=== PATIENT | female | born 1975 | race Caucasian/White ===

== ENCOUNTER 2017-11-08 00:11 | Outpatient (CLI) | payer BC, SELFPAY ==
--- NOTE | 2017-11-08 15:45 | DI.MAMMO_ITS ---
SYMPTOMS/DIAGNOSIS: SCREENING, Z12.31 MAMMOGRAMS: Mammograms were interpreted according to the usual protocol including computer analysis with CAD system, tomosynthesis and C view imaging. The breast tissue is of moderate radiodensity. No masses identified. There are no suspicious calcifications and there has been no appreciable interval change when compared with previous images. SUMMARY: No evidence of malignancy, category 1. Yearly screening mammography is recommended. Breast density category B. MQSA ASSESSMENT OF FINDINGS: Negative. Category 1. Patient will receive a letter notifying them of these results. BI-RADS category B. There are scattered areas of fibroglandular density.
== END 2017-11-08 00:31 ==
PROVIDERS: PCP Family Medicine; Visit Provider Nurse Practitioner Family
DX: Z12.31 Encounter for screening mammogram for malignant neoplasm of breast (principal)
CPT/HCPCS: 77063; 77067

== ENCOUNTER 2018-03-04 19:29 | Emergency (ER) | payer OTHER, SELFPAY ==
[2018-03-04 19:37] VITALS: BP 120/83; PULSE 67; RESP 16; TEMP 36.5; O2SAT 98
--- NOTE | 2018-03-04 19:54 | DI.RAD_ITS ---
SYMPTOMS/DIAGNOSIS: PAIN, S/P TRAUMA LEFT FOOT: No fracture or dislocation is seen. IMPRESSION: Negative left foot.
--- NOTE | 2018-03-04 19:54 | ED.GENADUL_ITS ---
Discharge Plan Disposition Patient Disposition: HOME Condition: Stable Discharge Details Chief Complaint: Orthopedic Clinical Impression: Contusion of foot, left Primary Care Provider: Smita Ortez V ED Provider: Garcia Alaniz Home Meds and New Rx's Prescriptions: No Action norgestimate-ethinyl estradiol [Sprintec (28)] 1 EACH tablet 1 tab-cap PO DAILY Qty: 3 RF: 3 Discharge Instructions Instructions: Contusion in Adults (ED) Additional Instructions: you can take 1000mg tylenol and 600mg ibuprofen every 6 hours for pain as needed if you still have pain next week see your primary care provider Medical Decision Making Pt states while at school a table fell on her left foot causing pain. Has pain proximal to the left toe without significant obvious deformity and has full rom of the ankle, 2+dp/pt pulses. Suspect contusion but will xray to eval for fx xray negative on my read, if vrad agrees will d/c as this is likely bone contusion, advised f/u with pcp in 1-2 weeks if still in pain Differential Diagnosis contusion, sprain, strain, fx Imaging Data Radiologic Study: Attestation: I personally reviewed and interpreted this imaging study as follows: Imaging: X-Ray My impression: no acute findings HPI General Mode of arrival: ambulatory . Date/Time Provider Initiated Documentation: 03/04/18 19:50 . Limitations to Documentation: no limitations . Information obtained by: patient . History of Present Illness 42 year old F presents to the emergency department with the chief complaint of left foot pain , described as moderate, with intensity rated at 5. Quality is described as aching, and is localized to the right and lower extremity. Patient reports no radiation. Patient started experiencing this hour(s) (6) and it has been constant. Rest improves symptom(s), Movement worsens symptoms . Patient notes no other symptoms.. Patient did receive the following treatments prior to arrival, none Related Data Home Medications Medication Instructions Recorded Confirmed norgestimate-ethinyl estradiol 1 tab-cap PO DAILY #3 pack 18 03/04/18 [Sprintec] Previous Rx's Medication Instructions Recorded norgestimate-ethinyl estradiol 1 tab-cap PO DAILY #3 pack 08/26/17 [Sprintec] Allergies Allergy/AdvReac Type Severity Reaction Status Date / Time No Known Drug Allergies Allergy Unverified 03/04/18 19:41 General Stated Complaint: Orthopedic MICHAEL: 4 Review of Systems Review of Systems All systems reviewed & are unremarkable except as noted in HPI and below Constitutional Denies chills and Denies fever(s) Cardiovascular Denies chest pain and Denies dyspnea Respiratory Denies dyspnea Gastrointestinal Denies abdominal pain, Denies nausea and Denies vomiting PFSH Surgical History Biopsy of breast (~01/2014) Family History Mother Essential hypertension Father Sleep apnea Essential hypertension Maternal Aunt Breast cancer Social History Smoking/Tobacco Use Status: Never Exam Const General: no acute distress Orientation: alert HENMT Head: normal to inspection Ears: external ears normal General nose exam: external nose normal Mouth: moist mucous membranes Eyes General: appearance normal, both eyes and all related structures Neck Neck: normal visual inspection Resp Effort & Inspection: normal respiratory effort and able to speak in complete sentences Cardio Rate: regular rate Skin General skin exam: no rashes or lesions noted Neuro General: alert and oriented x3 Extrem General: normal to inspection Psych Mental Status: mental status grossly normal Course Vital Signs Temperature 36.5 C 03/04/18 19:37 Pulse 67 03/04/18 19:37 Respiratory Rate 16 03/04/18 19:37 Blood Pressure 120/83 03/04/18 19:37 Pulse Oximetry 98 03/04/18 19:37 Temperature 36.5 C 03/04/18 19:37 Temperature Source Skin 03/04/18 19:37 Pulse 67 03/04/18 19:37 Respiratory Rate 16 03/04/18 19:37 Respiratory Effort 03/04/18 19:40 Blood Pressure 120/83 03/04/18 19:37 Blood Pressure Position Sitting 03/04/18 19:37 Pulse Oximetry 98 03/04/18 19:37 Oxygen Delivery Method Room Air 03/04/18 19:37 Oxygen Flow Rate 0 03/04/18 19:37 Pain Level 6 03/04/18 19:43
--- NOTE | 2018-03-04 20:23 | DI.VRAD_ITS ---
EXAM: XR Left Foot Complete, 3 or more Views EXAM DATE/TIME: 03/04/2018 7:55 PM CLINICAL HISTORY: 42 years old, female; Injury or trauma; Injury history: Dropped a table onto foot; Initial encounter; Blunt trauma; Left TECHNIQUE: XR Left foot 3 or more views. COMPARISON: No relevant prior studies available. FINDINGS: Bones/joints: Normal. There is no evidence of acute fracture.There is no evidence of malalignment or dislocation. Soft tissues: Normal. IMPRESSION: No acute findings. Dictated and Authenticated by: Long Castorena MD. Ordering:RADU Zelaya MD
[2018-03-04] MEDS: Ibuprofen 600 MG TAB PO (20:57)
--- NOTE | 2018-03-04 20:58 | NUR.NOTE ---
patient medicated per MD order Nursing Note:
== END 2018-03-04 21:03 | disposition home or self-care (01) ==
PROVIDERS: Emergency Provider Emergency Medicine; PCP Family Medicine
DX: S90.32XA Contusion of left foot, initial encounter (principal); W20.8XXA Other cause of strike by thrown, projected or falling object, initial encounter
CPT/HCPCS: 99283; 73630

== ENCOUNTER 2018-08-08 12:06 | Outpatient (REF) | payer BC, SELFPAY ==
--- NOTE | 2018-08-08 11:15 | PAPFT_PTH ---
PATIENT: Vanesa Gleason LOC: [facility] U#:[id number] AGE/SX: 42/F ROOM: RE08/08/[address]: HARRY Amaro : 1975 BED: DIS: 08/08/2018 SPEC #: [id number] RECD: 08/08/18 13:09 STATUS: VIKASH REPhillip #: [id number] AZEB: 08/08/18 11:[address]: Jen Leonardo DEPT: [facility] Cytology RECD BY: Thi Carey ENTERED: 08/08/18 13:09 SP TYPE: PAPFT OTHR DR: Smita Ortez V Tissues: 1 - CX/ENDOCX FOR PAP SMEARS Procedures: PAP THIN PREP/UVM Screening HPV DNA PROBE Comments: [id number]
== END 2018-08-08 12:26 ==
LOC: LBN 12:06
PROVIDERS: PCP Family Medicine; Visit Provider Nurse Practitioner Family
DX: Z12.4 Encounter for screening for malignant neoplasm of cervix (principal); Z11.51 Encounter for screening for human papillomavirus (HPV)
CPT/HCPCS: 88142; 87624

== ENCOUNTER 2018-11-14 00:13 | Outpatient (CLI) | payer BC, SELFPAY ==
--- NOTE | 2018-11-14 15:30 | DI.MAMMO_ITS ---
EXAM: MG MAMMO SCREENING CLINICAL HISTORY: Screening, Z12.31. TECHNIQUE: Mammograms were interpreted according to the usual protocol including computer analysis w [employer] CAD system, tomosynthesis and C-view imaging. COMPARISON: Comparison with prior images. FINDINGS: The breast tissue is of moderate radiodensity. There is no evidence of a mass. There are no suspiciou s calcifications and there has been no appreciable interval change when compared with prior images. IMPRESSION: No evidence of malignancy, Category 1, annual screening mammography is recommended. Breast density Ca tegory B. BI-RADS Cat 1 - Negative Breast Density - Category B - Scattered areas of fibroglandular density
== END 2018-11-14 00:33 ==
PROVIDERS: PCP Family Medicine; Visit Provider Nurse Practitioner Family
DX: Z12.31 Encounter for screening mammogram for malignant neoplasm of breast (principal)
CPT/HCPCS: 77063; 77067

== ENCOUNTER 2020-09-04 02:28 | Outpatient (CLI) | payer BC, SELFPAY ==
--- NOTE | 2020-09-04 08:15 | DI.MAMMO_ITS ---
Exam(s) MAMMO SCREENING EXAM: MAMMO SCREENING CLINICAL HISTORY: screening,Z12.39. TECHNIQUE: Bilateral full field digital CC and MLO mammographic images were obtained with 3D tomosyn thesis and utilizing computer aided detection (CAD). COMPARISON: Prior mammograms dating back to 2013, the most recent being October 2018. FINDINGS: There are no new spiculated masses nor malignant appearing microcalcification groups. There is no significant architectural distortion nor skin thickening-retraction. IMPRESSION: No radiographic evidence of malignancy. BI-RADS Category 1 - Negative Breast Density - Category B - Scattered areas of fibroglandular density Breast density Category C or D implies that the patient has dense breast tissue. Dense breast tissue can make it harder to find cancer on a mammogram. Dense breast tissue is also associated with an incr eased risk of breast cancer. This information about the result of the mammogram report was provided to the patient to raise their awareness. Use this report when you speak with the patient about their risks for breast cancer, which includes their family history. At that time, you may recommend additional screening tests (Ultrasoun d or MRI) as these tests may add significant information. A negative radiographic report should not delay biopsy if a dominant or clinically suspicious mass is present. Up to ten percent of cancers are not identified on mammography. A negative report may reinforce clinical impression. Adenosis and dense breasts may obscure an underlying neoplasm. False positive reports average 6 to 10%. Patient will receive a letter notifying them of these results.
== END 2020-09-04 02:48 ==
PROVIDERS: PCP Family Medicine; Visit Provider Nurse Practitioner Family
DX: Z12.31 Encounter for screening mammogram for malignant neoplasm of breast (principal); R92.8 Other abnormal and inconclusive findings on diagnostic imaging of breast
CPT/HCPCS: 77063; 77067

== ENCOUNTER 2021-12-24 17:50 | Outpatient (REF) | payer BC, SELFPAY ==
[2021-12-24 20:48] LABS: ALT 16 U/L (14-59); AST 17 U/L (15-37); Albumin 3.8 g/dL (3.4-5.0); Alkaline Phosphatase 68 U/L (46-116); Anion Gap 9.8 mmol/L (3-11); BUN 14 mg/dL (7-18); Bilirubin, Total 0.4 mg/dL (0.2-1.0); CO2 25.2 mmol/L (21.0-32.0); CREATININE 0.8 mg/dL (0.55-1.02); Calcium 9.1 mg/dL (8.5-10.1); Calculated LDL 120 mg/dL (<100); Chloride 105 mmol/L (98-107); Cholesterol 212 mg/dL (<200); Estimated GFR 90.83 (mL/min/1.73m2); Glucose 92 mg/dL (74-106); HDL Cholesterol 70 mg/dL (40-60); Potassium 4.2 mmol/L (3.5-5.1); Sodium 140 mmol/L (136-145); TSH (W/Ref FT4) 1.23 uIU/mL (0.36-3.74); Total Protein 7.5 g/dL (6.4-8.2); Triglyceride 114 mg/dL (<150)
[2021-12-24 22:08] LABS: Hemoglobin A1C 5.5 % (<5.7)
== END 2021-12-24 17:51 | disposition home or self-care (01) ==
LOC: NCHCN 17:50
PROVIDERS: PCP Family Medicine; Visit Provider Physician Assistant Medical
DX: Z00.8 Encounter for other general examination (principal)
CPT/HCPCS: 80053; 80061; 83036; 84443

== ENCOUNTER 2022-01-14 01:47 | Outpatient (CLI) | payer BC, SELFPAY ==
--- NOTE | 2022-01-14 | DI.MAMMO_ITS ---
Exam(s) MAMMO SCREENING EXAM: MAMMO SCREENING CLINICAL HISTORY: SCREENING MAMMO FOR BREAST CANCER Z12.31 TECHNIQUE: Bilateral full field digital CC and MLO mammographic images were obtained with 3D tomosyn thesis and utilizing computer aided detection (CAD). COMPARISON: Available for comparison. FINDINGS: Masses/Architectural Distortion: None seen. Microcalcifications: No suspicious pleomorphic-type are seen. Skin Thickening/Nipple Retraction: None. IMPRESSION: 1. No significant interval change with no specific features of malignancy noted. 2. Unless there is more urgent need, screening mammography is recommended, as per [employer] guidelines. BI-RADS Category 1 - Negative Breast Density - Category B - Scattered areas of fibroglandular density Breast density category C or D implies that the patient has dense breast tissue. Dense breast tissue is very common and is not abnormal but dense breast tissue can make it harder to find cancer on a ma mmogram. Also, dense breast tissue may increase their breast cancer risk. This information about the result of the mammogram report was provided to the patient to raise their awareness. Use this report when you speak with the patient about their risks for breast cancer, which includes their family hist ory. At that time, you may recommend for more screening tests (Ultrasound or MRI) as they might be us eful based on their risk. A negative radiographic report should not delay biopsy if a dominant or clinically suspicious mass is present. Up to ten percent of cancers are not identified on mammography. A negative report may reinforce clinical impression. Adenosis and dense breasts may obscure an underlying neoplasm. False positive reports average 6 to 10%. Patient will receive a letter notifying them of these results.
== END 2022-01-14 02:07 ==
LOC: DI 01:48
PROVIDERS: PCP Family Medicine; Visit Provider Physician Assistant Medical
DX: Z12.31 Encounter for screening mammogram for malignant neoplasm of breast (principal)
CPT/HCPCS: 77063; 77067

== ENCOUNTER 2022-11-16 06:13 | Day surgery (SDC) | payer BC, SELFPAY ==
[2022-11-16 06:24] VITALS: BP 139/90; PULSE 69; RESP 17; TEMP 36.6; O2SAT 98
[2022-11-16] MEDS: Lactated Ringers 1,000 ML 80 ML IV (06:52)
--- NOTE | 2022-11-16 07:02 | W.ANESPRE ---
General Info Date of Service Date Performed: 11/16/22 Height: 5 ft 4 in Weight: 103.9 kg Body Mass Index (BMI): 39.3 Surgical Procedure: Operation Date: 11/16/22 07:35 Proposed Procedure Side Surgeon p Colonoscopy Mello Georges MD Meds Allergies and Home Medications Allergies Allergy/AdvReac Type Severity Reaction Status Date / Time No Known Drug Allergies Allergy Verified 11/16/22 06:33 Home Medication Medication Instructions Recorded bisacodyl 5 mg tablet,delayed 5 mg PO ONCE Colonoscopy Bowel 10/20/22 release (Dulcolax (bisacodyl)) Prep #4 tabs escitalopram oxalate 5 mg tablet 10 mg PO DAILY 10/20/22 (Lexapro) polyethylene glycol 3350 17 238 g PO ONCE Colonoscopy Bowel 10/20/22 gram/dose oral powder Prep #238 grams Current Visit Medications: Current Medications Generic Name Dose Route Start Last Admin Trade Name Freq PRN Reason Stop Dose Admin Sodium Chloride 500 mls @ 0 mls/hr 11/16/22 06:50 Saline 500ml Bag IV 12/16/22 06:49 PRN PRN As Directed Ringer's Solution 1,000 mls @ 80 mls/hr 11/16/22 06:51 11/16/22 06:52 IV 12/16/22 06:50 80 mls/hr INFUSION DONNA Administration IV Miscellaneous Supplies 1 each 11/16/22 06:50 Iv Access IV 12/16/22 06:49 DIRECTED DONNA Sodium Chloride 0 ml 11/16/22 06:50 Normal Saline Flush 10 Ml Syr IVP 12/16/22 06:49 PRN PRN PFSH Active Problems Active Problems: Problem Status Onset Code PMS (premenstrual syndrome) N94.3 Screening for colon cancer Z12.11 GERD (gastroesophageal reflux disease) K21.9 Substernal chest pain R07.2 Anxiety and depression F41.9, F32.A Dizziness R42 Headache R51.9 Surgical History Surgical History Biopsy of breast (~01/2014) R - Benign - Dr Barnett H/O wisdom tooth extraction Tobacco Smoking/Tobacco Use Status: Never Alcohol Alcohol Intake: current Alcohol intake frequency: 0-2 drinks per day Alcohol type: beer Substance Use Substance use: Never Substance use type: does not use Prental History History 1 Para 1 Hx # Term Pregnancies Multiple births Hx # Pregnancies Ectopic pregnancies AB induced Hx Number of Living Children AB spontaneous Vital Signs and Lab Results Vital Signs Most Recent Vital Signs in EMR: Most Recent Vital Signs Temp Pulse Resp BP Pulse Ox 36.6 C 69 17 139/90 98 11/16/22 06:24 11/16/22 06:24 11/16/22 06:24 11/16/22 06:24 11/16/22 06:24 Point of Care Results Point of Care Results: POC- Test(urine) Negative 11/16/22 06:24 Lab Results Blood Type / Crossmatch: No Data to Display Complete Blood Count: No Data to Display Complete Metabolic Panel: No Data to Display Liver Function Panel: No Data to Display Coagulation Panel: No Data to Display Cardiac Panel: No Data to Display Arterial Blood Gas: No Data to Display Venous Blood Gas: No Data to Display Pancreas Panel: No Data to Display Thyroid Panel: No Data to Display Infectious Disease: No Data to Display Blood Cultures: No Data to Display Toxicology Panel: No Data to Display Panel: No Data to Display Imaging and Studies Imaging and Studies Study information below may be from another EMR and interpreted by another provider. Please see original notes in EMR for more complete details. Stress Test Summary: Stress results: The target heart rate was achieved. The heart rate response to stress is normal. There is a normal resting blood pressure with an appropriate response to stress. The rate-pressure product for the peak heart rate and blood pressure was 77959xd Hg/min. The patient experienced no chest pain during stress. Exercise capacity is above normal for age. Stress ECG: TREADMILL STRESS TEST ENDED IN 11 MINUTES & 28 SECONDS BECAUSE OF PATIENT FATIGUE. NORMAL BP RESPONSE. MAX HR 174. % OF TARGET HR = 97. ABOVE AVERAGE FUNCTIONAL CAPACITY. METS ACHIEVED = 13.48. NO ECTOPY. The stress ECG is negative. Tolbert treadmill score: 12. This score predicts a low risk of cardiac events. 03/06/15 Anesthesia Assessment and Plan Anesthesia History Personal History: No History of Anesthesia Complications Family History: No Family History of Anesthesia Complications Exercise Tolerance Exercise Tolerance: Metabolic Equivalents>4 Pertinent Negatives Pertinent Negatives: No Symptoms of GERD, No Major Cardiovascular Symptoms or Complaints, No Major Pulmonary Symptoms or Complaints and No History of CVA/TIA Cardiac & Pulmonary Exam Cardiac Exam: Normal S1/S2 Heart Sounds Pulmonary Exam: Clear Bilateral Breath Sounds Implantable Cardiac Device Does patient have a Pacemaker or an ICD?: No Airway Exam Known Difficult Airway: No Mallampati Class: 3 Mouth Opening: Normal (> 3cm) Thyromental Distance: Less than 3 cm Neck Range of Motion: Full ROM Neck Circumference: Thick Teeth Condition: Normal Dentition ASA Classification ASA Score: ASA 3 Emergency Case?: No NPO Status NPO Status: NPO Clears >2 hours, Solids >8 hours Status Status: Negative HCG Anesthesia Plan Resuscitation Status: Full Code Anesthesia Technique: General Anesthesia Airway Planned: Natural Airway Monitors Used: Standard Monitors
[2022-11-16 07:05] VITALS: BMI 39.3
[2022-11-16 08:07] VITALS: BP 102/66; PULSE 56; RESP 18; TEMP 36; O2SAT 96
--- NOTE | 2022-11-16 08:10 | W.COLOREPORT ---
Date of service: 11/16/22 Time of Service: 08:10 Colonoscopy Report Procedure Description: Procedures performed: 1. Colonoscopy Preoperative diagnosis: Screening colonoscopy Postoperative diagnosis: Diverticulosis, grade 1 internal hemorrhoids Surgeon: Pablo Georges Anesthesia: Sera Indication for procedure: 47-year-old woman without any symptoms who has never had a colonoscopy and no family history of polyps or cancer is due for screening. Findings: No polyps. Mild sigmoid diverticulosis, grade 1 internal hemorrhoids Surveillance/follow-up recommendations: 10 years Complications: None Blood loss: Minimal Prep: Excellent Specimens:? None Procedure in detail: Written consent was obtained from the patient who was in agreement with the risks, benefits and indications of the procedure.? We went to the endoscopy suite and laid the patient in left lateral decubitus position.? Anesthesia was administered which was tolerated well.? A timeout was performed and when we are all in agreement we began the procedure. Digital rectal exam and visual examination was performed and within normal limits.? A well?lubricated colonoscope was advanced without difficulty all the way to the cecum identified by the ileocecal valve, and triangular folds and appendiceal orifice.? It was then slowly withdrawn.?? Retroflexion was performed in the rectum.? The findings/interventions are noted above. The scope was then removed and the patient tolerated the procedure well and was then taken back to the PACU in hemodynamically stable condition.
--- NOTE | 2022-11-16 08:12 | W.PM.DSUDISC ---
Date of service: 11/16/22 Time of Service: 08:12 Discharge Plan Disposition Patient Disposition: Home Condition: Good Discharge Details Attending Provider: Mello Georges Primary Care Provider: Smita Ortez V Home Meds and New Rx's Prescriptions: No Action bisacodyl [Dulcolax (bisacodyl)] 5 mg tablet,delayed release (DR/EC) 5 mg PO ONCE Qty: 4 0RF Rx Instructions: Colonoscopy Bowel Prep- Per Instructions polyethylene glycol 3350 17 gram/dose powder 238 g PO ONCE Qty: 238 0RF Rx Instructions: Colonoscopy Bowel Prep- Per Instructions escitalopram oxalate [Lexapro] 5 mg tablet 10 mg PO DAILY Discharge Instructions Additional Instructions: FINDINGS: No polyps, no inflammation, nor any findings of concern. Mild diverticular changes were found in your colon. This is extremely common, benign and there is nothing you need to do about it as long as you are not having any symptoms. Mild hemorrhoid disease was also found. This is also extremely common, benign and nothing needs to be done about it Stand Alone Forms: Colonoscopy Post Instructions Activity:: Activity as Tolerated Diet:: As Tolerated Discharge Orders Discharge Orders: Discharge Order (Routine); Ordered 11/16/22 Ordered By: Mello Georges DS: Diagnosis Discharge Diagnosis (1) Screening for colon cancer: Status: Acute Asessment and Plan: No polyps. Repeat in 10 years.
--- NOTE | 2022-11-16 08:29 | W.ANESPOSTOP ---
Postoperative Evaluation Date, Time and Location Date Performed: 11/16/22 Time Performed: 08:12 Patient Location: Day Surgery Unit Vital Signs Most Recent Imported Vital Signs: Most Recent Vital Signs Temp Pulse Resp BP Pulse Ox 36 C L 56 L 18 102/66 96 11/16/22 08:07 11/16/22 08:07 11/16/22 08:07 11/16/22 08:07 11/16/22 08:07 Pain Score Most Recent Pain Score: Most Recent Pain Score Pain Level 0 11/16/22 08:07 Assessment Mental Status: Awake (Alert & Oriented to Patient Baseline) Airway and Respiratory Function: Patent airway with normal (patient baseline) respiratory exam Cardiovascular Function: Hemodynamically Stable Hydration Status: Adequately Hydrated Nausea & Vomiting: No Nausea or Vomiting Pain: Pt. Denies Any Pain Peripheral Nerve Block: Patient did not receive a nerve block
[2022-11-16 08:31] VITALS: BP 119/88; PULSE 48; RESP 16; TEMP 36.2; O2SAT 99
== END 2022-11-16 09:17 | disposition home or self-care (01) ==
PROVIDERS: PCP Family Medicine; Visit Provider Student in an Organized Health Care Education/Training Program
PROC: 0DJD8ZZ Inspection of Lower Intestinal Tract, Via Natural or Artificial Opening Endoscopic (ICD-10-PCS; CPT 45378; principal; 2022-11-16 07:30)
DX: Z12.11 Encounter for screening for malignant neoplasm of colon (principal); K57.30 Diverticulosis of large intestine without perforation or abscess without bleeding; K64.0 First degree hemorrhoids
CPT/HCPCS: 45378; 81025; J2001; J2405

== ENCOUNTER 2023-03-26 15:23 | Outpatient (REF) | payer BC, SELFPAY ==
[2023-03-26 19:05] LABS: TSH (W/Ref FT4) 1.35 uIU/mL (0.36-3.74)
[2023-03-26 20:00] LABS: Vitamin D 25 Total 22.8 ng/mL (30-100)
== END 2023-03-26 15:24 | disposition home or self-care (01) ==
LOC: NCHCN 15:23
PROVIDERS: PCP Family Medicine; Visit Provider Physician Assistant Medical
DX: F41.8 Other specified anxiety disorders (principal); E55.9 Vitamin D deficiency, unspecified
CPT/HCPCS: 82306; 84443

== ENCOUNTER 2023-06-23 18:02 | Outpatient (REF) | payer BC, SELFPAY ==
[2023-06-23 21:57] LABS: Vitamin D 25 Total 59.6 ng/mL (30-100)
== END 2023-06-23 18:03 | disposition home or self-care (01) ==
LOC: NCHCN 18:02
PROVIDERS: PCP Family Medicine; Visit Provider Physician Assistant Medical
DX: E55.9 Vitamin D deficiency, unspecified (principal)
CPT/HCPCS: 82306

== ENCOUNTER 2024-05-24 18:50 | Outpatient (REF) | payer BC, SELFPAY ==
--- NOTE | 2024-05-24 14:45 | PAPFT_PTH ---
PATIENT: Vanesa Gleason LOC: [facility] U#:[id number] AGE/SX: 48/F ROOM: RE05/24/[address]: Artemio Rudolph : 1975 BED: DIS: 05/24/2024 SPEC #: [id number] RECD: 05/25/24 12:41 STATUS: VIKASH REQ #: [id number] AZEB: 05/24/24 14:[address]: Artemio Rudolph DEPT: [facility] Cytology RECD BY: Thi Carey ENTERED: 05/25/24 12:42 SP TYPE: PAPFT OTHR DR: Smita Ortez V Tissues: 1 - CX/ENDOCX FOR PAP SMEARS Procedures: PAP THIN PREP/UVM Screening HPV DNA PROBE Comments: [id number] (HPV 16 & 18/45)
== END 2024-05-24 18:51 | disposition home or self-care (01) ==
LOC: NCHCN 18:50
PROVIDERS: PCP Family Medicine; Visit Provider Physician Assistant Medical
DX: Z12.4 Encounter for screening for malignant neoplasm of cervix (principal)
CPT/HCPCS: 88142; 87624

== ENCOUNTER 2024-06-13 15:54 | Outpatient (REF) | payer BC, SELFPAY ==
[2024-06-13 16:43] LABS: ALT 27 U/L (14-59); AST 23 U/L (15-37); Albumin 3.4 g/dL (3.4-5.0); Alkaline Phosphatase 78 U/L (46-116); Anion Gap 5.3 mmol/L (3-11); BUN 21 mg/dL (7-18); Bilirubin, Total 0.2 mg/dL (0.2-1.0); CO2 27.7 mmol/L (21.0-32.0); CREATININE 0.9 mg/dL (0.55-1.02); Calcium 9.3 mg/dL (8.5-10.1); Calculated LDL 111 mg/dL (<100); Chloride 110 mmol/L (98-107); Cholesterol 173 mg/dL (<200); Estimated GFR 77.88 (mL/min/1.73m2); Glucose 108 mg/dL (74-106); HDL Cholesterol 52 mg/dL (>or=50); Potassium 5.1 mmol/L (3.5-5.1); Sodium 143 mmol/L (136-145); Triglyceride 51 mg/dL (<150)
[2024-06-13 17:25] LABS: Hemoglobin A1C 5.3 % (<5.7)
== END 2024-06-13 15:55 | disposition home or self-care (01) ==
LOC: NCHCN 15:54
PROVIDERS: PCP Family Medicine; Visit Provider Physician Assistant Medical
DX: Z13.6 Encounter for screening for cardiovascular disorders (principal); Z13.1 Encounter for screening for diabetes mellitus; E66.9 Obesity, unspecified
CPT/HCPCS: 80053; 80061; 83036

== ENCOUNTER 2024-06-26 01:19 | Outpatient (CLI) | payer BC, SELFPAY ==
--- NOTE | 2024-06-26 | DI.MAMMO_ITS ---
Exam(s) MAMMO SCREENING EXAM: MAMMO SCREENING CLINICAL HISTORY: Screening, Z12.31. TECHNIQUE: Bilateral full field digital CC and MLO mammographic images were obtained with 3D tomosyn thesis and utilizing computer aided detection (CAD). COMPARISON: Prior mammograms were reviewed. FINDINGS: There has been no significant change in the appearance and distribution of the fibroglandular tissue. There are no new spiculated masses nor malignant appearing microcalcification groups. There is no significant architectural distortion nor skin thickening-retraction. IMPRESSION: No radiographic evidence of malignancy. BI-RADS Category 1 - Negative Breast Density - Category B - There are scattered areas of fibroglandular density. Breast density Category C or D implies that the patient has dense breast tissue. Dense breast tissue can make it harder to find cancer on a mammogram. Dense breast tissue is also associated with an incr eased risk of breast cancer. This information about the result of the mammogram report was provided to the patient to raise their awareness. Use this report when you speak with the patient about their risks for breast cancer, which includes their family history. At that time, you may recommend additional screening tests (Ultrasoun d or MRI) as these tests may add significant information. A negative radiographic report should not delay biopsy if a dominant or clinically suspicious mass is present. Up to ten percent of cancers are not identified on mammography. A negative report may reinforce clinical impression. Adenosis and dense breasts may obscure an underlying neoplasm. False positive reports average 6 to 10%. Patient will receive a letter notifying them of these results.
== END 2024-06-26 01:39 ==
LOC: DI 01:20
PROVIDERS: PCP Family Medicine; Visit Provider Physician Assistant Medical
DX: Z12.31 Encounter for screening mammogram for malignant neoplasm of breast (principal); R92.323 Mammographic fibroglandular density, bilateral breasts
CPT/HCPCS: 77063; 77067